=== PATIENT | female | born 1960 | race Caucasian/White ===

== ENCOUNTER 2017-06-11 17:00 | Emergency (ER) | payer OTHER, MEDICAID ==
[~2017-06-11] VITALS: Ht 170.2 cm; Wt 74.8 kg
[2017-06-11] MEDS ORDERED: TRIAMCINOLONE 40MG/ML 1ML VIAL IM ONE (20:15)
[2017-06-11] MEDS ORDERED: LIDOCAINE 1% HCL (LOCAL ANESTH.) INJ 20ML MDV IJ ONE (20:30)
[2017-06-11 20:45] VITALS: BP 130/88
[2017-07-06] MEDS ORDERED: GABA300C10 PO (10:21)
== END 2017-06-11 20:52 | disposition home or self-care (01) ==
LOC: ER 17:02
DX: R51 Headache (principal); G89.29 Other chronic pain; M54.2 Cervicalgia; Z88.6 Allergy status to analgesic agent; Z88.8 Allergy status to other drugs, medicaments and biological substances
CPT/HCPCS: 20552; 70450; 99284; J3301